=== PATIENT | female | born 2000 | race Two or more races ===

== ENCOUNTER 2025-02-03 01:58 | Emergency (ER) | payer MEDICAID, OTHER ==
[~2025-02-03] VITALS: Ht 170.2 cm; Wt 60.3 kg
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
[2025-02-03 02:18] VITALS: BP 129/91; PULSE 91; RESP 19; TEMP 97.9; O2SAT 99
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
[2025-02-03] MEDS ORDERED: TIZA-142 PO (03:31)
[2025-02-03] MEDS ORDERED: NABU-72 PO (03:31)
== END 2025-02-03 03:42 | disposition home or self-care (01) ==
LOC: ER 02:01
DX: S20.212A Contusion of left front wall of thorax, initial encounter (principal); S13.4XXA Sprain of ligaments of cervical spine, initial encounter; Y08.89XA Assault by other specified means, initial encounter; Y93.89 Activity, other specified; Y92.89 Other specified places as the place of occurrence of the external cause; Y99.8 Other external cause status
CPT/HCPCS: 71101; 72040